=== PATIENT | female | born 2000 | race Two or more races ===

== ENCOUNTER 2019-04-09 01:26 | Inpatient (IN) ==
[~2019-04-09 01:26] MED LIST: LR 1000 ML IV 1,000 ML IV ONE
[2019-04-09] MEDS ORDERED: FENTANYL INJ 100 mcg ONE (01:35)
[2019-04-09] MEDS ORDERED: XYLOCAINE-MPF 1% ONE (01:35)
[2019-04-09] MEDS ORDERED: NAROPIN EPIDURAL 0.2% + FENTANYL 90MCG 60 ML EPI ONE (01:35)
[2019-04-09] MEDS ORDERED: NUBAIN INJ 10 ONE (01:35)
[2019-04-09] MEDS ORDERED: D5 1/2 NS 1L W PITOCIN 20 UNITS/L 20 UNITS/1,000 ML BAG IV ONE (01:36)
[2019-04-09] MEDS ORDERED: PITOCIN ONE (01:36)
[2019-04-09] MEDS ORDERED: D5LR 1L W PITOCIN 10 UNITS/L 10 UNITS/1,000 ML BAG IV PRN (02:33)
[2019-04-09] MEDS ORDERED: VSL#3 PO SCH (02:33)
[2019-04-09] MEDS ORDERED: AMPICILLIN VIAL 2 GRAM 2 G in NS 100 ML IV + SPIKE MINIBAG* 100 ML IV SCH (02:33)
[2019-04-09] MEDS ORDERED: D5 1/2 NS 1000 ML 1,000 ML IV SCH (02:33)
[2019-04-09] MEDS ORDERED: PHENERGAN INJ 25 MG IM PRN (02:33)
[2019-04-09] MEDS ORDERED: NUBAIN INJ 200 MG VIAL MULTIDOSE IVP PRN (02:33)
[2019-04-09] MEDS ORDERED: MORPHINE SULFATE INJ 2 MG INJ IVP PRN (02:33)
[2019-04-09] MEDS ORDERED: REGLAN INJ 10 MG VIAL IVP PRN (02:33)
[2019-04-09] MEDS ORDERED: PITOCIN IVP ONE (02:33)
[2019-04-09] MEDS ORDERED: AMPICILLIN VIAL 2 GRAM ONE (02:38)
[2019-04-09] MEDS ORDERED: NS 100 ML IV 100 ML IV ONE (02:38)
[2019-04-09] MEDS: AMPICILLIN VIAL 1 GRAM 1 G in NS 50 ML IV + SPIKE MINIBAG* 50 ML IV SCH ×2 (02:46→02:47)
[2019-04-09] MEDS ORDERED: DERMOPLAST SPRAY TOP PRN (04:35)
[2019-04-09] MEDS ORDERED: AMBIEN PO PRN (04:35)
[2019-04-09] MEDS: D5 1/2 NS 1000 ML 1,000 ML with PITOCIN 20 UNITS IV SCH ×4 (04:35→22:31)
[2019-04-09] MEDS ORDERED: MILK OF MAGNESIA PO PRN (04:35)
[2019-04-09 05:40] LABS: HEMATOCRIT 31.4 % (36.0-47.0); HEMOGLOBIN 10.1 g/dL (12.0-16.0)
[2019-04-09] MEDS ORDERED: HYPERRHO S/D (or RHOGAM) IM ONE (08:22)
[2019-04-09] MEDS: PRENATAL PLUS PO SCH (11:17)
[2019-04-09] MEDS: ZANTAC PO SCH ×2 (11:19→21:00)
[2019-04-09] MEDS: MOTRIN TAB 800 MG PO PRN (17:41)
[2019-04-10] MEDS: D5 1/2 NS 1000 ML 1,000 ML with PITOCIN 20 UNITS IV SCH ×2 (05:00)
[2019-04-10] MEDS ORDERED: DEPO-PROVERA CONTRACEPTIVE INJ IM ONE (07:40)
[2019-04-10] MEDS: ZANTAC PO SCH (08:51)
[2019-04-10] MEDS: PRENATAL PLUS PO SCH (08:51)
[2019-04-10] MEDS: MOTRIN TAB 800 MG PO PRN (08:52)
[2019-04-10] MEDS ORDERED: NICOTINE PATCH TD SCH (10:00)
[2019-04-10 13:20] VITALS: BP 121/63
== END 2019-04-10 11:50 | disposition home or self-care (01) | DRG 806 ==
LOC: LD 01:26 → MED/SURG 04:32
PROVIDERS: ADMIT Obstetrics & Gynecology Obstetrics; ATTEND Specialist
DX: Z23 Encounter for immunization; Z3A.39 39 weeks gestation of pregnancy; O99.824 Streptococcus B carrier state complicating childbirth; B95.1 Streptococcus, group B, as the cause of diseases classified elsewhere; O36.0930 Maternal care for other rhesus isoimmunization, third trimester, not applicable or unspecified; Z37.0 Single live birth
CPT/HCPCS: 36415; 59409; 80048; 80307; 81001; 81003; 84112; 85014; 85018; 85025; 86592; 86850; 86900; 86901; 96365; 96374; 99284; A4216; A4222; S0197; G0434; J0290; J1050; J2300; J2590; J2790; J3010; J7050; J7120; S5010